=== PATIENT | female | born 1990 | race Caucasian/White ===

== ENCOUNTER 2021-10-27 06:50 | Emergency (ER) | payer SELFPAY ==
[2021-10-27 08:19] LABS: Bilirubin,Urine NEG (Negative); Blood,Urine NEG (Negative); Color,Urine Yellow (Yellow); Protein,Urine <15 mg/dL mg/dL (Negative); Urobilinogen,Urine < 2.0 mg/dL (<2.0)
[2021-10-27 08:53] LABS: Bacteria,Urine 3+ /HPF (Negative); Mucus,Urine FEW /HPF
--- NOTE | 2021-10-27 09:02 | Emergency Department Report ---
ED General Adult HPI - General Chief complaint: Back Pain/Injury Stated complaint: BACK PAIN Time Seen by Provider: 10/27/21 07:23 Source: patient Mode of arrival: Ambulatory Limitations: No Limitations - History of Present Illness Initial comments: 31-year-old -[place] female patient presents with complaints of right lower back pain x2 days. Patient rates her pain as a 6/10 in severity and states it worsens with movement. Last medical history includes sciatica, however she states she has only had this occur on the left side. Pain does ra diate down patient's leg. Patient states her symptoms not improve with ibuprofen. She also denies any loss of bladder/bowel control, numbness/tingling/weakness in her limbs, difficulty with ambulation, IV drug use, history of cancer, or steroid use. Patient states she does have urinary frequency without dysuria or hematuria. She also denies fever/chills/sweats. No known drug allergies per patient. Patient states she works at [employer] and does frequent heavy lifting of boxes Severity scale (0 -10): 4 - Related Data Previous Rx's Medication Instructions Recorded Last Taken Type Naproxen 500 mg PO BID PRN #20 tab 10/27/21 Unknown Rx Sulfamethoxazole/Trimethoprim 1 each PO BID 3 Days #6 tab 10/27/21 Unknown Rx [Bactrim DS TAB] methocarbamoL [Methocarbamol] 750 - 1,500 mg PO TID PRN #26 tab 10/27/21 Unknown Rx predniSONE [Deltasone] 20 mg PO BID #6 tab 10/27/21 Unknown Rx Allergies Allergy/AdvReac Type Severity Reaction Status Date / Time No Known Allergies Allergy Verified 10/27/21 07:00 ED Review of Systems ROS: Stated complaint: BACK PAIN Other details as noted in HPI Constitutional: denies: chills, fever, malaise Gastrointestinal: denies: abdominal pain Genitourinary: frequency. denies: urgency, dysuria, hematuria, discharge, abnormal menses Musculoskeletal: back pain Neurological: denies: weakness, numbness, paresthesias, abnormal gait ED Past Medical Hx - Past Medical History Previous Medical History?: Yes Additional medical history: Sciatic nerve issue - Surgical History Past Surgical History?: No - Medications Home Medications: Home Medications Medication Instructions Recorded Confirmed Last Taken Type Naproxen 500 mg PO BID PRN #20 tab 10/27/21 Unknown Rx Sulfamethoxazole/Trimethoprim 1 each PO BID 3 Days #6 tab 10/27/21 Unknown Rx [Bactrim DS TAB] methocarbamoL [Methocarbamol] 750 - 1,500 mg PO TID PRN #26 tab 10/27/21 Unknown Rx predniSONE [Deltasone] 20 mg PO BID #6 tab 10/27/21 Unknown Rx ED Physical Exam - General Limitations: No Limitations General appearance: alert, in no apparent distress - Head Head exam: Present: atraumatic, normocephalic - Eye Eye exam: Present: normal appearance. Absent: scleral icterus - Respiratory Respiratory exam: Present: normal lung sounds bilaterally - Cardiovascular Cardiovascular Exam: Present: regular rate - GI/Abdominal GI/Abdominal exam: Present: soft, normal bowel sounds. Absent: distended, tenderness, guarding, rebound, rigid - Extremities Exam Extremities exam: Present: full ROM - Back Exam Back exam: Present: full ROM, paraspinal tenderness (Right lower lumbar). Absent: CVA tenderness (R), CVA tenderness (L), vertebral tenderness - Expanded Back Exam Expanded Back exam: Absent: saddle anesthesia Back exam: Sciatic Notch Tenderness: Right, Positive Straight Leg Raise: Right - Neurological Exam Neurological exam: Present: alert, oriented X3, normal gait. Absent: motor sensory deficit - Psychiatric Psychiatric exam: Present: normal affect, normal mood ED Course Vital Signs 10/27/21 07:01 Temperature 98.2 F Pulse Rate 79 Respiratory 17 Rate Blood Pressure 134/74 [Right] O2 Sat by Pulse 100 Oximetry ED Medical Decision Making - Medical Decision Making 31-year-old -[place] female patient presents with complaints of right lower back pain x2 days. Patient rates her pain as a 6/10 in severity and states it worsens with movement. Last medical history includes sciatica, however she states she has only had this occur on the left side. Pain does radiate down patient's leg. Patient states her symptoms not improve with ibuprofen. She also denies any loss of bladder/bowel control, numbness/tingling/weakness in her limbs, difficulty with ambulation, IV drug use, history of cancer, or steroid use. Patient states she does have urinary frequency without dysuria or hematuria. She also denies fever/chills/sweats. No known drug allergies per patient. Patient states she works at [employer] and does frequent heavy lifting of boxes UA shows mild elevated WBCs is 6. Physical is consistent with sciatica. No CVA tenderness is noted. Given patient has urinary frequency, patient will be covered for UTI with Bactrim. Recommend follow-up with PCP in 3 to 5 days. She is otherwise well-appearing, her vitals are within normal limits, she is stable for discharge home. Strict return precautions were discussed in detail with patient who verbalizes understanding Critical care attestation.: If time is entered above; I have spent that time in minutes in the direct care of this critically ill patient, excluding procedure time. ED Disposition Clinical Impression: Right-sided low back pain with right-sided sciatica, Urinary frequency Disposition: 01 HOME / SELF CARE / HOMELESS Is pt being admited?: No Condition: Stable Instructions: Sciatica, Urinary Tract Infection, Adult, [id number] Prescriptions: Sulfamethoxazole/Trimethoprim [Bactrim DS TAB] 1 each PO BID 3 Days #6 tab predniSONE [Deltasone] 20 mg PO BID #6 tab methocarbamoL [Methocarbamol] 750 - 1,500 mg PO TID PRN #26 tab PRN Reason: muscle spasm/tightness Naproxen 500 mg PO BID PRN #20 tab PRN Reason: pain Referrals: PRIMARY CARE, [Referring] - 3-5 Days [facility] [Provider Group] - 3-5 Days
[2021-10-27 09:49] VITALS: BP 118/62
== END 2021-10-27 09:32 | disposition home or self-care (01) ==
LOC: ED 06:50
DX: M54.50 Low back pain, unspecified (principal); M54.31 Sciatica, right side; R35.0 Frequency of micturition
CPT/HCPCS: 81001; 99283

== ENCOUNTER 2022-05-03 06:57 | Emergency (ER) | payer MEDICAID, OTHER | END 2022-05-03 09:05 | disposition left against medical advice (07) | LOC: ED 06:57 | DX: R20.8 Other disturbances of skin sensation (principal) ==